=== PATIENT | male | born 1970 | race Caucasian/White ===

== ENCOUNTER → 2021-05-02 10:17 | Outpatient (CLI) | payer MEDICARE, OTHER, SELFPAY ==
[2021-05-02 10:28] LABS: Coronavirus 19, PCR Not Detected (NotDetected); Influenza A, PCR Not Detected (NotDetected); Influenza B, PCR Not Detected (NotDetected)
[2021-05-02 11:30] LABS: Basophils # 0.1 K/mm3 (0-0.2); Basophils % 1.1 % (0.1-2.0); Eosinophils # 0.1 K/mm3 (0.0-0.4); Eosinophils % 1.1 % (0.1-12.0); Hematocrit 46.6 % (42.0-52.0); Hemoglobin 14.7 g/dL (14.1-18.0); Lymphocytes # 1.5 K/mm3 (0.7-4.5); Mean Corpuscular HGB Conc 31.6 g/dL (31.8-35.4); Mean Corpuscular Hemoglobin 29.8 pg (27.0-31.2); Mean Corpuscular Volume 94.2 fl (80-94); Mean Platelet Volume 8.3 fl (7.4-10.4); Monocytes # 0.3 K/mm3 (0.1-1.0); Monocytes % 5.8 % (1.7-9.3); Neutrophils # 3.7 K/mm3 (1.8-7.8); Platelet Count 227 K/mm3 (142-424); Red Blood Count 4.94 M/mm3 (4.60-6.20); Red Cell Distribution Width 14.3 % (11.5-17.5); White Blood Count 5.6 K/mm3 (4.8-10.8)
[2021-05-02 11:35] LABS: Chloride 104 mmol/L (98-107); Potassium 4.2 mmoL/L (3.5-5.1); Sodium 138 mmol/L (136-145)
[2021-05-02 11:38] LABS: Alanine Aminotransferase 15 U/L (12-78); Albumin Level 4.2 g/dl (3.5-5.0); Albumin/Globulin Ratio 1.4 (1.1-1.8); Alkaline Phosphatase 52 U/L (38-126); Anion Gap 5.2 mEq/L (5-15); Aspartate Amino Transferase 34 U/L (17-59); Bilirubin,Total 0.3 mg/dl (0.2-1.3); Blood Urea Nitrogen 11 mg/dl (9-20); Carbon Dioxide 33 mmol/L (22.0-30.0); Estimated Glomerular Filt Rate 101 ml/min (>60); GFR (African American) 122 ML/MIN (>60); Total Protein,Serum 7.2 g/dl (6.3-8.2)
[2021-05-02 11:39] LABS: Calcium 9.5 mg/dl (8.4-10.2); Glucose 100 mg/dl (74-100)
[2021-05-02 11:56] LABS: Troponin I < 0.01 ng/ml (0.00-0.034)
[2021-05-02 12:09] LABS: Thyroid Stimulating Hormone 1.99 uIU/mL (0.465-4.68)
[2021-05-02 12:15] LABS: Free T4 (Free Thyroxine) 1.68 ng/dl (0.78-2.19)
[2021-05-02 15:08] LABS: Amphetamine/Metha Screen,Urine Negative ng/ml (<1000); Benzodiazepines Screen,Urine Negative ng/ml (<200)
[2021-05-02 15:09] LABS: Barbiturates Screen,Urine Negative ng/ml (<200); Cannabinoid Screen,Urine Negative ng/ml (<50)
[2021-05-02 15:10] LABS: Cocaine Screen,Urine Negative ng/ml (<300)
[2021-05-02 15:11] LABS: Methadone Screen,Urine Negative ng/ml (<300); Opiate Screen,Urine Negative ng/ml (<300)
[2021-05-02 15:12] LABS: Phencyclidine Screen,Urine Negative ng/ml (<25)
== END ==
PROVIDERS: PCP Emergency Medicine; Visit Provider Emergency Medicine
DX: R53.83 Other fatigue (principal); Z79.899 Other long term (current) drug therapy; Z20.822 Contact with and (suspected) exposure to COVID-19
CPT/HCPCS: 80053; 80305; 84439; 84443; 84484; 85025; C9803; U0003; U0005

== ENCOUNTER 2021-09-28 20:34 | Emergency (ER) | payer MEDICARE, OTHER, SELFPAY ==
[2021-09-28 20:29] VITALS: BP 109/71; PULSE 60; RESP 16; TEMP 36.9; O2SAT 96; BMI 26.2
--- NOTE | 2021-09-28 20:41 | CT_ITS ---
PROCEDURE INFORMATION: Exam: CT Head Without Contrast Exam date and time: 09/28/21 08:45 PM Age: 51 years old Clinical indication: Injury or trauma; Other: Punched himself in right eye; Blunt trauma (contusions or hematomas); Additional info: Head injury TECHNIQUE: Imaging protocol: Computed tomography of the head without contrast. Radiation optimization: All CT scans at this facility use at least one of these dose optimization techniques: automated exposure control; mA and/or kV adjustment per patient size (includes targeted exams where dose is matched to clinical indication); or iterative reconstruction. COMPARISON: No relevant prior studies available. FINDINGS: Brain: Normal. No hemorrhage. Unremarkable white matter. No mass effect. Cerebral ventricles: No ventriculomegaly. Paranasal sinuses: Visualized sinuses are unremarkable. No fluid levels. Mastoid air cells: Visualized mastoid air cells are well aerated. Bones/joints: Unremarkable. No acute fracture. Soft tissues: Unremarkable. IMPRESSION: No acute intracranial abnormality.
[2021-09-28 20:48] LABS: Adenovirus,PCR Not Detected (NotDetected); Bordetella Pertussis Not Detected (NotDetected); Chlamydophila Pneumoniae, PCR Not Detected (NotDetected); Coronavirus 19, PCR Not Detected (NotDetected); Coronavirus 229E Not Detected (NotDetected); Coronavirus NL63 Not Detected (NotDetected); Coronavirus OC43 Not Detected (NotDetected); Coronovirus HKU1,PCR Not Detected (NotDetected); Human Metapneumovirus Not Detected (NotDetected); Influenza A, PCR Not Detected (NotDetected); Influenza AH1, 2009 Not Detected (NotDetected); Influenza AH1, PCR Not Detected (NotDetected); Influenza AH3,PCR Not Detected (NotDetected); Influenza B, PCR Not Detected (NotDetected); Mycoplasma Pneumoniae, PCR Not Detected (NotDetected); Parainfluenza 1, PCR Not Detected (NotDetected); Parainfluenza 2, PCR Not Detected (NotDetected); Parainfluenza 3, PCR Not Detected (NotDetected); Parainfluenza 4, PCR Not Detected (NotDetected); Respiratory Syncytial Virus Not Detected (NotDetected); Rhinovirus/Enterovirus Not Detected (NotDetected)
--- NOTE | 2021-09-28 20:58 | HMH.EDPSYCH ---
ED Disposition Clinical Impression: Suicidal ideation Depression Qualifiers: Depression Type: major depressive disorder Major depression recurrence: unspecified whether recurrent Active/Remission status: currently active Major depression episode severity: unspecified Qualified Code(s): F32.9 - Major depressive disorder, single episode, unspecified Facial laceration Qualifiers: Encounter type: initial encounter Qualified Code(s): S01.81XA - Laceration without foreign body of other part of head, initial encounter Disposition: Xfer Psychiatric Hosp Condition on Discharge: Fair Instructions: Depression, DI for Laceration Repair -- Simple Additional Instructions: sutures out 8 days and will send to [facility] for eval Referrals: Scott Shankar MD [Emergency Provider] - - Critical Care Critical Care Time: No Attestation: On 09/28/21, the high probability of a clinically significant, sudden or life threatening deterioration of the following system(s) required my full and direct attention, intervention and personal management. The time I documented below is in addition to time spent performing reported procedures but includes the following listed in this critical care notation. Medical Decision Making - Medical Records Medical records reviewed: Yes: I reviewed the patient's medical records. - Godfrey Inquiry Pt receiving controlled substance: No Vital Signs: 09/28/21 20:29 Temperature 98.5 F Temperature Source Oral Pulse Rate [Left Radial] 60 Respiratory Rate 16 Blood Pressure [Right Arm] 109/71 L Blood Pressure Mean [Right Arm] 83 Blood Pressure Source [Right Arm] Automatic Cuff 02 Sat by Pulse Oximetry 96 Oxygen Delivery Method Room Air - Lab Data Lab results reviewed: Yes: I reviewed the patient's lab results. Lab Results 09/28/21 20:44: Chlamy pneumoniae PCR Not detected, Adenovirus (PCR) Not detected, B. pertussis DNA (PCR) Not detected, Coronavirus OC43 (PCR) Not detected, Coronavirus HKU1 (PCR) Not detected, Coronavirus 229E (PCR) Not detected, SARS-CoV-2 (PCR) Not detected, Coronavirus NL63 (PCR) Not detected, Human Metapneumovir PCR Not detected, Influenza A (H1) PCR Not detected, Influ A (H1N1/09) PCR Not detected, Influenza A (H3) PCR Not detected, Influenza Type A (PCR) Not detected, Influenza Type B (PCR) Not detected, M. pneumoniae (PCR) Not detected, Parainfluenza 1 (PCR) Not detected, Parainfluenza 2 (PCR) Not detected, Parainfluenza 3 (PCR) Not detected, Parainfluenza 4 (PCR) Not detected, RSV (PCR) Not detected, Entero/Rhino (PCR) Not detected 09/28/21 21:00: WBC 6.4, RBC 4.52 L, Hgb 13.0 L, Hct 43.4, MCV 96.1 H, MCH 28.7, MCHC 29.8 L, RDW 14.0, Plt Count 250, MPV 9.3, Neut % (Auto) 58.1, Lymph % (Auto) 31.9, Andrew % (Auto) 5.7, Eos % (Auto) 3.1, Baso % (Auto) 1.2, Neut # (Auto) 3.7, Lymph # (Auto) 2.1, Andrew # (Auto) 0.4, Eos # (Auto) 0.2, Baso # (Auto) 0.1 09/28/21 21:00: Sodium 139, Potassium 3.2 L, Chloride 105, Carbon Dioxide 26, Anion Gap 11.2, BUN 12, Creatinine 0.70, Estimated Creat Clear 156, Estimated GFR 118, Est GFR ( Amer) 143, Glucose 173 H, Calcium 8.7, Total Bilirubin < 0.1 L, AST 34, ALT 34, Alkaline Phosphatase 48, Total Protein 6.2 L, Albumin 3.6, Globulin 2.6, Albumin/Globulin Ratio 1.4, TSH 3.66, Thyroxine (T4) 8.6, Salicylates < 1.0 L, Acetaminophen < 10 L 09/28/21 21:05: Urine Color Yellow, Urine Appearance Clear, Urine pH 6.0, Ur Specific [place] >= 1.030, Urine Protein Negative, Urine Glucose (UA) Negative, Urine Ketones Trace, Urine Blood Negative, Urine Nitrate Negative, Urine Bilirubin 1+ A, Urine Urobilinogen 1.0, Ur Leukocyte Esterase Negative, Urine RBC Occasional, Urine WBC 5-10, Ur Squamous Epith Cells 3-5, Urine Bacteria Trace 09/28/21 21:05: Urine Opiates Screen Negative, Urine Methadone Screen Negative, Ur Barbituates Screen Negative, Ur Phencyclidine Scrn Negative, Ur Amphetamines Screen Negative, U Benzodiazepines Scrn Negative, Urine Cocaine Screen Negative, U
[2021-09-28 21:00] VITALS: BP 104/66; PULSE 53; O2SAT 96
[2021-09-28 21:09] LABS: Basophils # 0.1 K/mm3 (0-0.2); Basophils % 1.2 % (0.1-2.0); Eosinophils # 0.2 K/mm3 (0.0-0.4); Eosinophils % 3.1 % (0.1-12.0); Hematocrit 43.4 % (42.0-52.0); Lymphocytes # 2.1 K/mm3 (0.7-4.5); Lymphocytes % 31.9 % (10-50); Mean Corpuscular HGB Conc 29.8 g/dL (31.8-35.4); Mean Corpuscular Hemoglobin 28.7 pg (27.0-31.2); Mean Corpuscular Volume 96.1 fl (80-94); Mean Platelet Volume 9.3 fl (7.4-10.4); Monocytes # 0.4 K/mm3 (0.1-1.0); Monocytes % 5.7 % (1.7-9.3); Neutrophils # 3.7 K/mm3 (1.8-7.8); Neutrophils % 58.1 % (37.0-80.0); Platelet Count 250 K/mm3 (142-424); Red Blood Count 4.52 M/mm3 (4.60-6.20); White Blood Count 6.4 K/mm3 (4.8-10.8)
[2021-09-28 21:10] LABS: Microscopic, Urine URINE MICROSCOPIC (MICROSCOPIC)
[2021-09-28 21:17] LABS: Appearance,Urine CLEAR (Clear); Bilirubin,Urine 1+ (Negative); Blood, Urine Negative (Negative); Color,Urine YELLOW (Yellow); Glucose,Urine (UA) Negative (Negative); Ketones,Urine TRACE (Negative); Leukocyte Esterase,Urine Negative (Negative); Nitrate,Urine Negative (Negative); Protein,Urine Negative (Negative); Specific Gravity, Urine >= 1.030 (1.005-1.030)
[2021-09-28 21:20] LABS: Alanine Aminotransferase 34 U/L (12-78); Albumin Level 3.6 g/dl (3.5-5.0); Albumin/Globulin Ratio 1.4 (1.1-1.8); Alkaline Phosphatase 48 U/L (38-126); Anion Gap 11.2 mEq/L (5-15); Aspartate Amino Transferase 34 U/L (17-59); Blood Urea Nitrogen 12 mg/dl (9-20); Calcium 8.7 mg/dl (8.4-10.2); Carbon Dioxide 26 mmol/L (22.0-30.0); Chloride 105 mmol/L (98-107); Creatinine Clearance Estimated 156 mL/min (50-200); Estimated Glomerular Filt Rate 118 ml/min (>60); GFR (African American) 143 ML/MIN (>60); Globulin 2.6 g/dL (1.3-3.2); Glucose 173 mg/dl (74-100); Potassium 3.2 mmoL/L (3.5-5.1); Sodium 139 mmol/L (136-145); Total Protein,Serum 6.2 g/dl (6.3-8.2)
[2021-09-28 21:23] LABS: Acetaminophen < 10 ug/ml (10-30); Bilirubin,Total < 0.1 mg/dl (0.2-1.3); Salicylate < 1.0 mg/dL (2.0-20.0)
[2021-09-28 21:28] LABS: Barbiturates Screen,Urine Negative ng/ml (<200); Benzodiazepines Screen,Urine Negative ng/ml (<200)
[2021-09-28 21:29] LABS: Amphetamine/Metha Screen,Urine Negative ng/ml (<1000)
[2021-09-28 21:30] LABS: Bacteria,Urine Trace /lpf; Cannabinoid Screen,Urine Negative ng/ml (<50); Methadone Screen,Urine Negative ng/ml (<300); RBC,Urine Occasional #/hpf (0-3)
[2021-09-28 21:31] LABS: Cocaine Screen,Urine Negative ng/ml (<300); Opiate Screen,Urine Negative ng/ml (<300)
[2021-09-28 21:32] LABS: Phencyclidine Screen,Urine Negative ng/ml (<25)
[2021-09-28 21:37] LABS: T4 (Thyroxine) 8.6 ug/dl (5.53-11.0)
[2021-09-28 21:51] LABS: Thyroid Stimulating Hormone 3.66 uIU/mL (0.465-4.68)
--- NOTE | 2021-09-28 23:05 | ECG_ITS ---
APPROVED REPORT Exam: Resting ECG HR:44 bpm ECG Measurements Heart Rate 44 AXES MT 165 P 58 QRSd 115 QRS 93 QT 435 T 80 QTc 384 Conclusion SINUS BRADYCARDIA BORDERLINE RIGHT AXIS DEVIATION [QRS AXIS > 90] MODERATE INTRAVENTRICULAR CONDUCTION DELAY [110+ ms QRS DURATION] BORDERLINE ECG UNCONFIRMED REPORT Electronically signed by : Jason Dobbins MD 10/01/2021 17:50:21
[2021-09-28 23:10] VITALS: BP 92/67; PULSE 46; O2SAT 95
[2021-09-28 23:45] VITALS: BP 100/70; PULSE 58; RESP 18; TEMP 36.8; O2SAT 99
[2021-10-16 21:50] LABS: Free Valproic Acid (Depakote) 3.9
== END 2021-09-28 23:48 ==
PROVIDERS: Emergency Provider Emergency Medicine; PCP Internal Medicine Adolescent Medicine
DX: R45.851 Suicidal ideations (principal); F32.9 Major depressive disorder, single episode, unspecified; S01.81XA Laceration without foreign body of other part of head, initial encounter; X83.8XXA Intentional self-harm by other specified means, initial encounter; Z79.899 Other long term (current) drug therapy
CPT/HCPCS: 12051; 70450; 80053; 80165; 80305; 80329; 81001; 84436; 84443; 85025; 87581; 87632; 87798; 93005; 99284; C9803; U0003; U0005

== ENCOUNTER 2022-01-24 09:37 | Emergency (ER) | payer MEDICARE, OTHER, SELFPAY ==
[2022-01-24 09:39] VITALS: BP 106/70; PULSE 75; RESP 17; TEMP 36.8; O2SAT 100; BMI 26.1
--- NOTE | 2022-01-24 09:59 | HMH.EDGENADL ---
Discharge Plan Disposition Patient Disposition: Xfer Psychiatric Hosp Condition: Good Chief Complaint: Psychiatric Symptoms Prescriptions Prescriptions: No Action multivitamin 1 EACH tablet 1 each PO DAILY ibuprofen 200 MG capsule 200 mg PO Q6HP PRN (Reason: pain/fever) olanzapine 10 MG tablet 20 mg PO DAILY levothyroxine 100 MCG tablet 100 mcg PO DAILY famotidine 20 MG tablet 20 mg PO DAILY tamsulosin 0.4 MG capsule 0.4 mg PO HS mirtazapine 15 MG tablet 15 mg PO DAILY divalproex 250 MG tablet extended release 24 hr 750 mg PO DAILY oxcarbazepine [Trileptal] 600 mg Tablet 600 mg PO BID Clinical Impressions Clinical Impression: Depression, Suicidal ideation Discharge ED Provider: Devante Abad General Adult HPI General Chief complaint: Psychiatric Symptoms Stated complaint: Psych Time Seen by Provider: 01/24/22 09:50 Mode of Arrival: EMS Source of Information: Patient and EMS Limitations: No Limitations Description of Symptoms (Recalled from ER Triage Doc. by RN): When asked what brought pt to the ED today, he stated Because I'm retarted. I laugh a lot. Really loud sometimes . When pt was asked if he felt bad in any way today he stated, My head. It hurts a little . Pt also states that he is hungry and wishes to have something to eat. History of Present Illness HPI narrative: Patient is brought in by ambulance from [facility]. He states that he is sent here because I am crazy . When asked what he means by being crazy he says I am retarded . Reportedly he has been threatening harm at [facility]. When asked whether he wants to hurt himself or anybody else he states that he wants to kill himself, and would use a gun to shoot himself. He does not currently have access to a gun, but states I would get one . States that he is previously tried to kill himself 15 years ago by overdose. He denies any homicidal ideation or any thoughts of harming others. He says he has had admissions to multiple psychiatric facilities, including [facility]. He states that he wants to be transferred to a psychiatric facility where he can see a psychiatrist. He denies any current physical illness. Specifically denies fever, vomiting, diarrhea, abdominal pain, cough, URI symptoms, urinary symptoms, chest pain, shortness of breath. Related Data Home Medications Medication Instructions Recorded Confirmed divalproex 250 mg tablet,extended 750 mg PO DAILY seizures 09/28/21 01/24/22 release 24 hr famotidine 20 mg tablet 20 mg PO DAILY GERD 09/28/21 01/24/22 ibuprofen 200 mg capsule 200 mg PO Q6HP PRN pain/fever 09/28/21 01/24/22 levothyroxine 100 mcg tablet 100 mcg PO DAILY hypothyroidism 09/28/21 01/24/22 mirtazapine 15 mg tablet 15 mg PO DAILY antidepressant 09/28/21 01/24/22 multivitamin 1 each PO DAILY Supplement 09/28/21 01/24/22 olanzapine 10 mg tablet 20 mg PO DAILY mental disorder 09/28/21 01/24/22 tamsulosin 0.4 mg capsule 0.4 mg PO HS urinary retention 09/28/21 01/24/22 oxcarbazepine 600 mg tablet 600 mg PO BID 01/24/22 01/24/22 (Trileptal) schizophrenia/depression Allergies Allergy/AdvReac Type Severity Reaction Status Date / Time No Known Allergies Allergy Verified 09/28/21 23:34 PFSH PFS Social History Smoking Status: Current every day smoker ROS Obtained: Yes Systems reviewed as appropriate & no additional complaints except as documented Constitutional Constitutional: Denies fever(s), Denies headache(s) and Denies weakness ENT Ears, Nose, Mouth, and Throat: Denies headache(s), Denies nasal discharge and Denies sore throat Cardiovascular Cardiovascular: Denies chest pain Respiratory Respiratory: Denies shortness of breath and Denies cough Gastrointestinal Gastrointestingal: Denies abdominal pain, constipation, diarrhea or vomiting Genitourinary Male Genitourinary: Denies difficulty urinating and Denies flank pain Musculoskele
[2022-01-24 10:00] VITALS: BP 122/80; PULSE 68; RESP 20; O2SAT 100
--- NOTE | 2022-01-24 10:01 | XR_ITS ---
PROCEDURE INFORMATION: Exam: XR Chest Exam date and time: 01/24/2022 10:30 AM Age: 51 years old Clinical indication: Screening exam; Other screening; Additional info: Psych medical clearance TECHNIQUE: Imaging protocol: Radiologic exam of the chest. Views: 1 view. COMPARISON: No relevant prior studies available. FINDINGS: Lungs: Unremarkable. No consolidation. Pleural spaces: Unremarkable. No pleural effusion. No pneumothorax. Heart/Mediastinum: Unremarkable. No cardiomegaly. Bones/joints: Unremarkable. IMPRESSION: No acute findings.
--- NOTE | 2022-01-24 10:21 | PC.NURSE ---
LAB CALLED FOR BLOOD DRAW
--- NOTE | 2022-01-24 10:21 | PC.NURSE ---
RAD HERE FOR CXR
--- NOTE | 2022-01-24 10:29 | PC.NURSE ---
REG TRAY ORDERED
[2022-01-24 10:50] LABS: Basophils # 0.1 K/mm3 (0-0.2); Basophils % 1.3 % (0.1-2.0); Eosinophils # 0.1 K/mm3 (0.0-0.4); Eosinophils % 1.7 % (0.1-12.0); Hematocrit 42.1 % (42.0-52.0); Hemoglobin 13.8 g/dL (14.1-18.0); Lymphocytes # 1.3 K/mm3 (0.7-4.5); Lymphocytes % 29.4 % (10-50); Mean Corpuscular HGB Conc 32.8 g/dL (31.8-35.4); Mean Corpuscular Hemoglobin 29.8 pg (27.0-31.2); Mean Corpuscular Volume 90.8 fl (80-94); Mean Platelet Volume 7.8 fl (7.4-10.4); Monocytes # 0.3 K/mm3 (0.1-1.0); Monocytes % 6.4 % (1.7-9.3); Neutrophils # 2.6 K/mm3 (1.8-7.8); Platelet Count 312 K/mm3 (142-424); Red Blood Count 4.64 M/mm3 (4.60-6.20); Red Cell Distribution Width 14.5 % (11.5-17.5); White Blood Count 4.3 K/mm3 (4.8-10.8)
[2022-01-24 10:54] LABS: Microscopic, Urine URINE MICROSCOPIC (MICROSCOPIC)
[2022-01-24 10:57] LABS: Chloride 99 mmol/L (98-107); Potassium 3.6 mmoL/L (3.5-5.1); Sodium 142 mmol/L (136-145)
[2022-01-24 10:59] LABS: Alanine Aminotransferase 18 U/L (12-78); Blood Urea Nitrogen 5 mg/dl (9-20); Creatinine Clearance Estimated 181 mL/min (50-200); Estimated Glomerular Filt Rate 141 ml/min (>60); GFR (African American) 171 ML/MIN (>60)
[2022-01-24 11:00] LABS: Albumin Level 4.4 g/dl (3.5-5.0); Albumin/Globulin Ratio 1.5 (1.1-1.8); Alkaline Phosphatase 58 U/L (38-126); Anion Gap 12.6 mEq/L (5-15); Aspartate Amino Transferase 38 U/L (17-59); Bilirubin,Total 0.4 mg/dl (0.2-1.3); Calcium 9.5 mg/dl (8.4-10.2); Carbon Dioxide 34 mmol/L (22.0-30.0); Glucose 103 mg/dl (74-100); Total Protein,Serum 7.4 g/dl (6.3-8.2)
[2022-01-24 11:05] LABS: Acetaminophen < 10 ug/ml (10-30); Ethyl Alcohol < 10 mg/dl (0-10); Salicylate < 1.0 mg/dL (2.0-20.0)
[2022-01-24 11:06] LABS: Appearance,Urine CLEAR (Clear); Bilirubin,Urine Negative (Negative); Blood, Urine Negative (Negative); Color,Urine YELLOW (Yellow); Glucose,Urine (UA) Negative (Negative); Ketones,Urine 1+ (Negative); Leukocyte Esterase,Urine Negative (Negative); Nitrate,Urine Negative (Negative); Protein,Urine Negative (Negative); Specific Gravity, Urine 1.015 (1.005-1.030); Urobilinogen,Urine 0.2 EU/dl (0.2)
--- NOTE | 2022-01-24 11:10 | ECG_ITS ---
APPROVED REPORT Exam: Resting ECG HR:53 bpm ECG Measurements Heart Rate 53 AXES MN 142 P 57 QRSd 122 QRS 98 QT 427 T 85 QTc 409 Conclusion SINUS BRADYCARDIA BORDERLINE RIGHT AXIS DEVIATION Marked artifact and U waves noted BORDERLINE ECG UNCONFIRMED REPORT Electronically signed by : Jason Dobbins MD 01/24/2022 21:18:43
[2022-01-24 11:21] LABS: Squamous Epithelial Cell,Urine Occasional #/hpf (0-5); WBC,Urine Occasional #/hpf (0-3)
[2022-01-24 11:22] LABS: Barbiturates Screen,Urine Negative ng/ml (<200)
[2022-01-24 11:23] LABS: Amphetamine/Metha Screen,Urine Negative ng/ml (<1000); Benzodiazepines Screen,Urine Negative ng/ml (<200)
[2022-01-24 11:24] LABS: Cannabinoid Screen,Urine Negative ng/ml (<50); Methadone Screen,Urine Negative ng/ml (<300)
[2022-01-24 11:25] LABS: Cocaine Screen,Urine Negative ng/ml (<300)
[2022-01-24 11:26] LABS: Opiate Screen,Urine Negative ng/ml (<300)
[2022-01-24 11:27] LABS: Phencyclidine Screen,Urine Negative ng/ml (<25)
--- NOTE | 2022-01-24 11:55 | PC.NURSE ---
emailed involuntary hold papers to judge Friedman
--- NOTE | 2022-01-24 13:39 | PC.NURSE ---
numerous attempts to receive email from Judge Friedman, one more try at house supervisors email
--- NOTE | 2022-01-24 13:51 | PC.NURSE ---
pt requested i call his mother, pt is talking to her now
--- NOTE | 2022-01-24 13:56 | PC.NURSE ---
pt given another meal tray, he keeps asking when he is going and says he is not going back to [facility].
--- NOTE | 2022-01-24 14:38 | PC.NURSE ---
have spoken with IT department about difficulty receiving email from judge yadav, IT department has checked and has not found any blocked emails from judge yadav. It staff has given me an alternate email to use that he will check and route email to me if he receives it. Have contacted judge yadav back, explained to him about alternate email to try. He repeated email address back to me to verify it. At this time awaiting email.
--- NOTE | 2022-01-24 14:54 | PC.NURSE ---
[facility]
--- NOTE | 2022-01-24 15:30 | PC.NURSE ---
[place] is on Zoom with Pt
--- NOTE | 2022-01-24 15:55 | PC.NURSE ---
pt up walking around continuously, pt given cookies and a pepsi
--- NOTE | 2022-01-24 16:04 | PC.NURSE ---
pt talking and up walking around vitals not taken due to not disturb pt more right now
[2022-01-24 17:54] LABS: Coronavirus 19, PCR Not Detected (NotDetected); Influenza A, PCR Not Detected (NotDetected); Influenza B, PCR Not Detected (NotDetected)
[2022-01-24 18:05] VITALS: BP 128/72; PULSE 84; RESP 16; TEMP 36.8; O2SAT 97
== END 2022-01-24 18:05 ==
PROVIDERS: Emergency Provider Emergency Medicine
DX: R45.851 Suicidal ideations (principal); F32.A Depression, unspecified; S01.91XA Laceration without foreign body of unspecified part of head, initial encounter; X83.8XXA Intentional self-harm by other specified means, initial encounter; Z79.899 Other long term (current) drug therapy; K21.9 Gastro-esophageal reflux disease without esophagitis; E03.9 Hypothyroidism, unspecified
CPT/HCPCS: 36415; 71045; 80053; 80305; 80329; 81001; 85025; 93005; 99283; C9803; U0003; U0005

== ENCOUNTER 2022-03-26 12:08 | Emergency (ER) | payer MEDICARE, OTHER, SELFPAY ==
[2022-03-26] VITALS (14 sets, daily range): BP systolic 105–130; BP diastolic 62–88; PULSE 64–90; RESP 18–20; TEMP 36.6–36.8; O2SAT 96–100; BMI 23.7; BMI 25.2
--- NOTE | 2022-03-26 12:11 | ECG_ITS ---
APPROVED REPORT Exam: Resting ECG HR:73 bpm ECG Measurements Heart Rate 73 AXES GA 152 P 55 QRSd 108 QRS 100 QT 391 T 60 QTc 417 Conclusion SINUS RHYTHM BORDERLINE RIGHT AXIS DEVIATION [QRS AXIS > 90] BORDERLINE ECG UNCONFIRMED REPORT Electronically signed by : Jason Dobbins MD 03/26/2022 17:01:19
--- NOTE | 2022-03-26 12:15 | PC.NURSE ---
suicide precautions in place. 1:1 staff ember at the bedside. pt dressed in a gown and personal belongings placed in a bag
[2022-03-26 12:31] LABS: Basophils # 0.1 K/mm3 (0-0.2); Basophils % 1.2 % (0.1-2.0); Eosinophils # 0.1 K/mm3 (0.0-0.4); Eosinophils % 2.9 % (0.1-12.0); Hemoglobin 13.2 g/dL (14.1-18.0); Lymphocytes # 1.7 K/mm3 (0.7-4.5); Lymphocytes % 41.3 % (10-50); Mean Corpuscular Hemoglobin 31.5 pg (27.0-31.2); Mean Corpuscular Volume 95.4 fl (80-94); Mean Platelet Volume 8.2 fl (7.4-10.4); Monocytes # 0.3 K/mm3 (0.1-1.0); Monocytes % 7.7 % (1.7-9.3); Neutrophils % 46.9 % (37.0-80.0); Platelet Count 285 K/mm3 (142-424); Red Blood Count 4.19 M/mm3 (4.60-6.20); White Blood Count 4.2 K/mm3 (4.8-10.8)
--- NOTE | 2022-03-26 12:35 | HMH.EDGENADL ---
Discharge Plan Disposition Patient Disposition: Xfer Short-Term Hosp Prescriptions Prescriptions: No Action multivitamin 1 EACH tablet 1 each PO DAILY ibuprofen 200 MG capsule 200 mg PO Q6HP PRN (Reason: pain/fever) olanzapine 10 MG tablet 20 mg PO DAILY levothyroxine 100 MCG tablet 100 mcg PO DAILY famotidine 20 MG tablet 20 mg PO DAILY tamsulosin 0.4 MG capsule 0.4 mg PO HS mirtazapine 15 MG tablet 15 mg PO DAILY divalproex 250 MG tablet extended release 24 hr 750 mg PO DAILY oxcarbazepine [Trileptal] 600 mg Tablet 600 mg PO BID Referrals Follow up/Referrals: Scott Shankar MD [Primary Care Provider] - See instructions Clinical Impressions Clinical Impression: Suicidal ideation Discharge ED Provider: Armin Harper General Adult HPI General Chief complaint: Psychiatric Symptoms Stated complaint: SI Time Seen by Provider: 03/26/22 12:13 History of Present Illness HPI narrative: This is a 52-year-old male with history of paranoid schizophrenia and previous SI attempt via overdose who is presenting with suicidal ideation. Patient states I just cannot take it anymore, and is planning on jumping off a 3 story balcony. Denies any recent new stressors, other than halfway in which he lives. Denies medication changes, overdose, attempt currently, hallucinations, drug use, alcohol use, withdrawals, or any other concerning history. States that he has been compliant with his medication Related Data Home Medications Medication Instructions Recorded Confirmed divalproex 250 mg tablet,extended 750 mg PO DAILY seizures 09/28/21 01/24/22 release 24 hr famotidine 20 mg tablet 20 mg PO DAILY GERD 09/28/21 01/24/22 ibuprofen 200 mg capsule 200 mg PO Q6HP PRN pain/fever 09/28/21 01/24/22 levothyroxine 100 mcg tablet 100 mcg PO DAILY hypothyroidism 09/28/21 01/24/22 mirtazapine 15 mg tablet 15 mg PO DAILY antidepressant 09/28/21 01/24/22 multivitamin 1 each PO DAILY Supplement 09/28/21 01/24/22 olanzapine 10 mg tablet 20 mg PO DAILY mental disorder 09/28/21 01/24/22 tamsulosin 0.4 mg capsule 0.4 mg PO HS urinary retention 09/28/21 01/24/22 oxcarbazepine 600 mg tablet 600 mg PO BID 01/24/22 01/24/22 (Trileptal) schizophrenia/depression Allergies Allergy/AdvReac Type Severity Reaction Status Date / Time No Known Allergies Allergy Verified 09/28/21 23:34 [facility] Disclaimer: The information contained in this section may have been updated after the patient was seen, as this information can be updated by other users. Social History Smoking Status: Never smoker alcohol intake: current current occupational status: unemployed Travel in the last 8 weeks: None ROS Obtained: Yes All systems reviewed & no additional complaints except as documented Physical Exam General General appearance: alert and in no apparent distress Head Head exam: atraumatic, normocephalic and normal inspection Eye Eye exam: Present normal appearance, PERRL and EOMI ENT ENT exam: Present normal exam, normal oropharynx, mucous membranes moist, TM's normal bilaterally and normal external ear exam Neck Neck exam: Present normal inspection, full ROM and trachea midline; Absent meningismus or lymphadenopathy Chest Chest inspection: Present normal inspection and symmetric chest wall rise; Absent tenderness Respiratory Respiratory exam: Present normal lung sounds bilaterally; Absent respiratory distress Cardiovascular Cardiovascular exam: Present regular rate and normal rhythm; Absent JVD Abdominal Exam Abdominal exam: Present soft and normal bowel sounds; Absent distention, tenderness or guarding Extremities Exam Extremities exam: Present normal inspection, full ROM and normal capillary refill; Absent calf tenderness Back Exam Back exam: Present normal inspection; Absent tenderness Neurological Exam Neurological exam: Present alert and oriented X3 Psychiatric Ps
[2022-03-26 12:39] LABS: Chloride 104 mmol/L (98-107); Potassium 3.7 mmoL/L (3.5-5.1); Sodium 140 mmol/L (136-145)
[2022-03-26 12:42] LABS: Alanine Aminotransferase 13 U/L (12-78); Albumin/Globulin Ratio 1.5 (1.1-1.8); Alkaline Phosphatase 45 U/L (38-126); Anion Gap 7.7 mEq/L (5-15); Aspartate Amino Transferase 32 U/L (17-59); Bilirubin,Total 0.4 mg/dl (0.2-1.3); Blood Urea Nitrogen 16 mg/dl (9-20); Carbon Dioxide 32 mmol/L (22.0-30.0); Creatinine Clearance Estimated 143 mL/min (50-200); Estimated Glomerular Filt Rate 118 ml/min (>60); GFR (African American) 142 ML/MIN (>60); Globulin 2.7 g/dL (1.3-3.2); Total Protein,Serum 6.7 g/dl (6.3-8.2)
[2022-03-26 12:43] LABS: Calcium 8.7 mg/dl (8.4-10.2); Ethyl Alcohol < 10 mg/dl (0-10); Glucose 101 mg/dl (74-100)
--- NOTE | 2022-03-26 15:17 | CARE MANAGER ---
ER called as this patient is voicing suicidal ideations, patient told this case loader operator that he wants to jump off the fire escape. Patient resides at local personal halfway. Called and spoke with Chandra at [facility] and he states that we fill out the 710 and send the 710 and 711 to the police for transport order. 710 was filled out and faxed along with 711 to [phone], [facility] dispatch. They will fax back to the ER @ [phone] then they will complete virtual assessment.
--- NOTE | 2022-03-26 18:32 | PC.NURSE ---
FORMS FAXED TO [facility]
[2022-03-26 21:07] LABS: Acetaminophen < 10 ug/ml (10-30); Ethyl Alcohol < 10 mg/dl (0-10); Salicylate < 1.0 mg/dL (2.0-20.0)
[2022-03-26 21:27] LABS: Coronavirus 19, PCR Not Detected (NotDetected); Influenza A, PCR Not Detected (NotDetected); Influenza B, PCR Not Detected (NotDetected)
--- NOTE | 2022-03-26 22:13 | PC.NURSE ---
T Tucker here for notary of 710 form
--- NOTE | 2022-03-26 22:23 | PC.NURSE ---
called dispatch for pt transport to [facility]. They states Judge Altamirano is still completing 712/713 form.
--- NOTE | 2022-03-26 22:52 | PC.NURSE ---
Pt continues to ask when he will get to leave. Pt informed that we are working as quickly as possible, and will have him transferred as soon as we have transportation available.
--- NOTE | 2022-03-26 23:21 | PC.NURSE ---
Called dispatch to check status of transport. They states PD is on their way
--- NOTE | 2022-03-26 23:32 | PC.NURSE ---
Called report to [facility]. S/w Olga Mcrae RN
== END 2022-03-26 23:15 | disposition short-term general hospital (02) ==
PROVIDERS: Emergency Provider Emergency Medicine; PCP Emergency Medicine
DX: R45.851 Suicidal ideations (principal); F20.0 Paranoid schizophrenia; Z91.51 Personal history of suicidal behavior; Z20.822 Contact with and (suspected) exposure to COVID-19
CPT/HCPCS: 80053; 80329; 85025; 93005; 99285; C9803; U0003; U0005

== ENCOUNTER 2022-05-25 23:25 | Emergency (ER) | payer MEDICARE, OTHER, SELFPAY ==
--- NOTE | 2022-05-25 23:31 | ECG_ITS ---
APPROVED REPORT Exam: Resting ECG HR:70 bpm ECG Measurements Heart Rate 70 AXES GA 150 P 55 QRSd 105 QRS 87 QT 375 T 80 QTc 396 Conclusion SINUS RHYTHM WITH SINUS ARRHYTHMIA NORMAL ECG UNCONFIRMED REPORT Electronically signed by : Jason Dobbins MD 05/26/2022 20:20:30
[2022-05-25 23:35] VITALS: BP 119/91; PULSE 69; RESP 16; TEMP 36.8; O2SAT 100; BMI 23.7
[2022-05-25 23:36] LABS: Coronavirus 19, PCR Not Detected (NotDetected); Influenza A, PCR Not Detected (NotDetected); Influenza B, PCR Not Detected (NotDetected)
[2022-05-25 23:48] LABS: Microscopic, Urine URINE MICROSCOPIC (MICROSCOPIC)
[2022-05-25 23:49] LABS: Appearance,Urine CLEAR (Clear); Bilirubin,Urine Negative (Negative); Blood, Urine Negative (Negative); Color,Urine YELLOW (Yellow); Glucose,Urine (UA) Negative (Negative); Ketones,Urine Negative (Negative); Leukocyte Esterase,Urine Negative (Negative); Nitrate,Urine Negative (Negative); PH,Urine 6.5 (5.0-8.5); Protein,Urine Negative (Negative)
[2022-05-26 00:05] LABS: Squamous Epithelial Cell,Urine Occasional #/hpf (0-5)
--- NOTE | 2022-05-26 00:25 | HMH.EDMCLR ---
Discharge Plan Disposition Patient Disposition: Xfer Psychiatric Hosp Chief Complaint: Medical Clearance Prescriptions Prescriptions: No Action divalproex 250 mg tablet,delayed release (DR/EC) See Rx Instructions .ROUTE .COMPLEX Qty: 60 11RF Dose Instruction: GIVE 1 TABLET BY MOUTH TWICE DAILY Rx Instructions: GIVE 1 TABLET BY MOUTH TWICE DAILY multivitamin 1 EACH tablet 1 each PO DAILY ibuprofen 200 MG capsule 200 mg PO Q6HP PRN (Reason: pain/fever) olanzapine 10 MG tablet 20 mg PO DAILY levothyroxine 100 MCG tablet 100 mcg PO DAILY famotidine 20 MG tablet 20 mg PO DAILY tamsulosin 0.4 MG capsule 0.4 mg PO HS mirtazapine 15 MG tablet 15 mg PO DAILY oxcarbazepine [Trileptal] 600 mg Tablet 600 mg PO BID Referrals Follow up/Referrals: Scott Shankar MD [Primary Care Provider] - See instructions Clinical Impressions Clinical Impression: Depression, Suicidal ideation Discharge ED Provider: Raad (ED)Scott Medical Clearance HPI General Chief complaint: Medical Clearance Stated complaint: mental evaluation Time Seen by Provider: 05/26/22 00:25 Mode of Arrival: Ambulatory Source of Information: Patient, Law Enforcement and Medical Record Description of Symptoms (Recalled from ER Triage Doc. by RN): pt states, I want to kil myself. pt states he feels paranoid. pt also states he feels like people are out to get him at [facility]. he is threatending me with martial arts and stealing all my money. pt states he plans to jump off that bridge. pt states he has not attempted to hurt himself. Reportedly pt was threatening to kill other residents/employees at [facility], per law enforcement. History of Present Illness HPI Narrative: pt from [facility] and reports paranoid and feels like wants to harm self- - reports plan to jump off bridge - also reported wished to harm others - has hx of same MD complaint: medical clearance requested Onset (ago): hour(s) Reason for Medical Clearance: psychiatric condition Place: other ([facility] ) Alleged Intoxication: No Compliant with Home Medications: Yes Traumatic Symptoms: denies traumatic injury Associated Symptoms: denies other symptoms Home Medications Medication Instructions Recorded Confirmed famotidine 20 mg tablet 20 mg PO DAILY GERD 09/28/21 01/24/22 ibuprofen 200 mg capsule 200 mg PO Q6HP PRN pain/fever 09/28/21 01/24/22 levothyroxine 100 mcg tablet 100 mcg PO DAILY hypothyroidism 09/28/21 01/24/22 mirtazapine 15 mg tablet 15 mg PO DAILY antidepressant 09/28/21 01/24/22 multivitamin 1 each PO DAILY Supplement 09/28/21 01/24/22 olanzapine 10 mg tablet 20 mg PO DAILY mental disorder 09/28/21 01/24/22 tamsulosin 0.4 mg capsule 0.4 mg PO HS urinary retention 09/28/21 01/24/22 oxcarbazepine 600 mg tablet 600 mg PO BID 01/24/22 01/24/22 (Trileptal) schizophrenia/depression Previous Rx's Medication Instructions Recorded divalproex 250 mg tablet,delayed See Rx Instructions .Route 04/22/22 release .COMPLEX #60 ea Allergies Allergy/AdvReac Type Severity Reaction Status Date / Time No Known Allergies Allergy Verified 09/28/21 23:34 [facility] Disclaimer: The information contained in this section may have been updated after the patient was seen, as this information can be updated by other users. Social History (Updated 03/26/22 @ 15:45 by Armin Harper MD) Smoking Status: Current every day smoker alcohol intake: current current occupational status: unemployed Travel in the last 8 weeks: None ROS Obtained: Yes All systems reviewed & no additional complaints except as documented Physical Exam General General appearance: alert Head Head exam: normocephalic Eye Eye exam: Present PERRL and EOMI ENT ENT exam: Present mucous membranes moist Neck Neck exam: Present trachea midline Respiratory Respiratory exam: Absent respiratory distress Cardiovascul
[2022-05-26 01:10] LABS: Basophils # 0.1 K/mm3 (0-0.2); Basophils % 1.5 % (0.1-2.0); Eosinophils # 0.2 K/mm3 (0.0-0.4); Eosinophils % 3.2 % (0.1-12.0); Hematocrit 46.4 % (42.0-52.0); Hemoglobin 15.1 g/dL (14.1-18.0); Lymphocytes # 2.2 K/mm3 (0.7-4.5); Lymphocytes % 34.6 % (10-50); Mean Corpuscular HGB Conc 32.6 g/dL (31.8-35.4); Mean Corpuscular Hemoglobin 30.3 pg (27.0-31.2); Mean Corpuscular Volume 92.9 fl (80-94); Monocytes # 0.5 K/mm3 (0.1-1.0); Monocytes % 7.6 % (1.7-9.3); Neutrophils # 3.4 K/mm3 (1.8-7.8); Neutrophils % 53.1 % (37.0-80.0); Platelet Count 250 K/mm3 (142-424); Red Cell Distribution Width 13.4 % (11.5-17.5); White Blood Count 6.4 K/mm3 (4.8-10.8)
[2022-05-26 01:13] LABS: Chloride 104 mmol/L (98-107); Potassium 3.7 mmoL/L (3.5-5.1); Sodium 142 mmol/L (136-145)
[2022-05-26 01:16] LABS: Alanine Aminotransferase 23 U/L (12-78); Albumin Level 4.5 g/dl (3.5-5.0); Albumin/Globulin Ratio 1.5 (1.1-1.8); Alkaline Phosphatase 52 U/L (38-126); Anion Gap 10.7 mEq/L (5-15); Aspartate Amino Transferase 35 U/L (17-59); Bilirubin,Total 0.6 mg/dl (0.2-1.3); Blood Urea Nitrogen 9 mg/dl (9-20); Calcium 8.9 mg/dl (8.4-10.2); Carbon Dioxide 31 mmol/L (22.0-30.0); Creatinine Clearance Estimated 139 mL/min (50-200); Estimated Glomerular Filt Rate 118 ml/min (>60); GFR (African American) 142 ML/MIN (>60); Globulin 3.1 g/dL (1.3-3.2); Glucose 109 mg/dl (74-100); Total Protein,Serum 7.6 g/dl (6.3-8.2)
[2022-05-26 01:19] LABS: Ethyl Alcohol < 10 mg/dl (0-10)
[2022-05-26 01:20] LABS: Acetaminophen < 10 ug/ml (10-30); Salicylate < 1.0 mg/dL (2.0-20.0)
--- NOTE | 2022-05-26 01:26 | PC.NURSE ---
Pt provided with snacks and drink
--- NOTE | 2022-05-26 01:31 | PC.NURSE ---
spoke with natalia at [facility], states pt is going to be coming to [facility]. requested we fax pt medication list to [facility].
[2022-05-26 01:32] LABS: Opiate Screen,Urine Negative ng/ml (<300)
[2022-05-26 01:34] LABS: T4 (Thyroxine) 10.3 ug/dl (5.53-11.0)
[2022-05-26 01:38] LABS: Amphetamine/Metha Screen,Urine Negative ng/ml (<1000); Barbiturates Screen,Urine Negative ng/ml (<200)
[2022-05-26 01:39] LABS: Benzodiazepines Screen,Urine Negative ng/ml (<200); Cannabinoid Screen,Urine Negative ng/ml (<50)
[2022-05-26 01:40] LABS: Cocaine Screen,Urine Negative ng/ml (<300)
--- NOTE | 2022-05-26 01:40 | PC.NURSE ---
álvaro in lab states will be approx 5-10 minutes until results on uds, states has to rerun a couple things. notified JUAN J MCQUEEN
[2022-05-26 01:41] LABS: Methadone Screen,Urine Negative ng/ml (<300)
[2022-05-26 01:47] LABS: Thyroid Stimulating Hormone 2.44 uIU/mL (0.465-4.68)
[2022-05-26 01:55] VITALS: BP 00/00; PULSE 0; RESP 0; TEMP -17.7; TEMP 0
[2022-05-26 01:59] LABS: Phencyclidine Screen,Urine Negative ng/ml (<25)
== END 2022-05-26 01:56 ==
PROVIDERS: Emergency Provider Emergency Medicine; PCP Emergency Medicine
DX: F32.A Depression, unspecified (principal); R45.851 Suicidal ideations; F17.210 Nicotine dependence, cigarettes, uncomplicated; Z20.822 Contact with and (suspected) exposure to COVID-19
CPT/HCPCS: 80053; 80305; 80329; 81001; 84436; 84443; 85025; 93005; 93041; 99285; C9803; U0003; U0005

== ENCOUNTER 2022-10-08 17:44 | Emergency (ER) | payer MEDICARE, OTHER, SELFPAY ==
[2022-10-08 17:35] VITALS: BP 130/81; PULSE 82; RESP 18; TEMP 36.9; O2SAT 98; BMI 25.2
--- NOTE | 2022-10-08 17:39 | PC.NURSE ---
Issa Burks at bedside sitting 1:1 with patient.
[2022-10-08 18:02] VITALS: BP 136/78; PULSE 82; RESP 14; O2SAT 98
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
--- NOTE | 2022-10-08 18:55 | PC.NURSE ---
Attempted to call [facility] for intake evaluation. #[phone]. Will call back.
--- NOTE | 2022-10-08 19:13 | PC.NURSE ---
Gave report to plant operator/shift supervisor
--- NOTE | 2022-10-08 19:22 | ECG_ITS ---
APPROVED REPORT Exam: Resting ECG HR:69 bpm ECG Measurements Heart Rate 69 AXES AZ 149 P 58 QRSd 115 QRS 95 QT 393 T 83 QTc 412 Conclusion SINUS RHYTHM BORDERLINE RIGHT AXIS DEVIATION [QRS AXIS > 90] MODERATE INTRAVENTRICULAR CONDUCTION DELAY [110+ ms QRS DURATION] BORDERLINE ECG UNCONFIRMED REPORT Electronically signed by : Jason Dobbins MD 10/09/2022 07:32:11
[2022-10-08 19:38] LABS: Coronavirus 19, PCR Not Detected (NotDetected); Influenza A, PCR Not Detected (NotDetected); Influenza B, PCR Not Detected (NotDetected)
--- NOTE | 2022-10-08 19:39 | PC.NURSE ---
patient resting, vitals not obtained at this time
[2022-10-08 19:45] LABS: Chloride 103 mmol/L (98-107); Sodium 141 mmol/L (136-145)
[2022-10-08 19:47] LABS: Basophils % 0.7 % (0.1-2.0); Eosinophils # 0.3 K/mm3 (0.0-0.4); Hematocrit 39.7 % (42.0-52.0); Hemoglobin 12.5 g/dL (14.1-18.0); Lymphocytes # 1.6 K/mm3 (0.7-4.5); Lymphocytes % 34.9 % (10-50); Mean Corpuscular HGB Conc 31.4 g/dL (31.8-35.4); Mean Corpuscular Hemoglobin 29.1 pg (27.0-31.2); Mean Corpuscular Volume 92.8 fl (80-94); Mean Platelet Volume 7.9 fl (7.4-10.4); Monocytes # 0.4 K/mm3 (0.1-1.0); Monocytes % 9.2 % (1.7-9.3); Neutrophils # 2.2 K/mm3 (1.8-7.8); Neutrophils % 48.1 % (37.0-80.0); Platelet Count 225 K/mm3 (142-424); Red Blood Count 4.28 M/mm3 (4.60-6.20); Red Cell Distribution Width 13.2 % (11.5-17.5); White Blood Count 4.5 K/mm3 (4.8-10.8)
[2022-10-08 19:48] LABS: Alanine Aminotransferase 29 U/L (12-78); Albumin Level 3.7 g/dl (3.5-5.0); Albumin/Globulin Ratio 1.4 (1.1-1.8); Alkaline Phosphatase 45 U/L (38-126); Anion Gap 14.6 mEq/L (5-15); Aspartate Amino Transferase 46 U/L (17-59); Bilirubin,Total 0.3 mg/dl (0.2-1.3); Blood Urea Nitrogen 8 mg/dl (9-20); Carbon Dioxide 27 mmol/L (22.0-30.0); Creatinine Clearance Estimated 109 mL/min (50-200); Estimated Glomerular Filt Rate 88 ml/min (>60); GFR (African American) 106 ML/MIN (>60); Globulin 2.7 g/dL (1.3-3.2); Potassium 3.6 mmoL/L (3.5-5.1); Total Protein,Serum 6.4 g/dl (6.3-8.2)
[2022-10-08 19:49] LABS: Calcium 8.7 mg/dl (8.4-10.2); Glucose 123 mg/dl (74-100)
--- NOTE | 2022-10-08 19:53 | PC.NURSE ---
patient given [place]
[2022-10-08 19:56] LABS: Barbiturates Screen,Urine Negative ng/ml (<200)
[2022-10-08 19:57] LABS: Benzodiazepines Screen,Urine Negative ng/ml (<200)
[2022-10-08 19:58] LABS: Amphetamine/Metha Screen,Urine Negative ng/ml (<1000); Cannabinoid Screen,Urine Negative ng/ml (<50)
[2022-10-08 19:59] LABS: Cocaine Screen,Urine Negative ng/ml (<300)
[2022-10-08 20:00] LABS: Methadone Screen,Urine Negative ng/ml (<300); Opiate Screen,Urine Negative ng/ml (<300)
[2022-10-08 20:01] LABS: Phencyclidine Screen,Urine Negative ng/ml (<25)
--- NOTE | 2022-10-08 20:16 | PC.NURSE ---
Dr. Franco at bedside
[2022-10-08 20:22] LABS: Ethyl Alcohol < 10 mg/dl (0-10)
--- NOTE | 2022-10-08 20:29 | PC.NURSE ---
patient is saying he I just want to get a ride to [facility] and be dropped off and I can survive in the [place] , patient is currently laying in bed with eyes closed and continues to talk about places he can go if we can get him a ride. I have explained that is not an option and not something we can do.
--- NOTE | 2022-10-08 20:40 | PC.NURSE ---
AT BEDSIDE ROUNDING ON PT. PT STATES HE DOES NOT WANT TO RETURN TO [facility] AND HE DOES NOT FEEL SAFE THERE. PT STATES HE IS WILLING TO SPEAK WITH THE [facility] IN [place] FOR POSSIBLE TRANSFER.
[2022-10-08 20:48] VITALS: BP 116/77; PULSE 62; O2SAT 97
[2022-10-08 21:00] VITALS: BP 121/69; PULSE 60; O2SAT 97
--- NOTE | 2022-10-08 21:00 | PC.NURSE ---
RENÉ SPOKE WITH THE [facility] IN [place] TO START THE PROCESS FOR POSSIBLE TRANSFER. FAXING THE [facility] A PACKET.
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
--- NOTE | 2022-10-08 22:33 | PC.NURSE ---
PT CONTINUES TO SLEEP WITH NO NEW COMPLAINTS
--- NOTE | 2022-10-08 22:39 | PC.NURSE ---
spoke with german @ [facility] for [facility]. faxed information [phone]
--- NOTE | 2022-10-08 22:59 | PC.NURSE ---
Faxed information to [facility] at this time.
--- NOTE | 2022-10-08 23:52 | PC.NURSE ---
[facility] has no available beds; will work up for eval in am if patient is still in the ED .
--- NOTE | 2022-10-09 01:15 | PC.NURSE ---
Patient remains LOS to nursing station. Denies SI/HI. EMV 15.
--- NOTE | 2022-10-09 02:52 | PC.NURSE ---
RAMIRE[facility] MUNGUIA SPEAKING WITH JUDGE MARTINEZ.
--- NOTE | 2022-10-09 02:56 | PC.NURSE ---
RENÉ IS PLACING A CALL TO [facility] IN ORDER TO GET PT EVALUATED.
--- NOTE | 2022-10-09 03:15 | PC.NURSE ---
Patient up eating food at this time. Out to nursing station to determine what the POC was. Advised we are waiting for the unix administrator.Ambulatory, up to bathroom at this time. Voided approximately 350 ml of yellow urine. No complaints offered.
--- NOTE | 2022-10-09 04:05 | PC.NURSE ---
Patient remains LOS to nursing station. Continues to deny HI/SI issues. No auditory or visual hallucinations noted. Watching tv at this moment.
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
--- NOTE | 2022-10-09 05:15 | PC.NURSE ---
Patient remains in LOS observation. Patient continues to deny SI/HI. GCS 15. No acute distress observed. Assisted to ambulated to BR and back to room without incident.
--- NOTE | 2022-10-09 07:06 | PC.NURSE ---
RN @ BS updating pt
--- NOTE | 2022-10-09 07:32 | PC.NURSE ---
spoke with [facility] [employer] help line who states as soon as they process software specialist paperwork they will return call with zoom ID and password.
--- NOTE | 2022-10-09 08:01 | PC.NURSE ---
Patient sitting in chair next to chair. No complaints at this time.
--- NOTE | 2022-10-09 08:02 | PC.NURSE ---
debbie morillo verified they have received municipal court judge paperwork and will be in touch soon.
--- NOTE | 2022-10-09 08:12 | PC.NURSE ---
Patient's mother has been called and updated on plan of care.
[2022-10-09 08:40] VITALS: BP 140/82; PULSE 62; RESP 16; O2SAT 100
--- NOTE | 2022-10-09 08:40 | PC.NURSE ---
tech obtained updated new set of vitals at this time
--- NOTE | 2022-10-09 08:50 | PC.NURSE ---
[facility] evaluating patient via IPAD
--- NOTE | 2022-10-09 08:52 | PC.NURSE ---
Sabiha from [facility] called for evaluation of patient
--- NOTE | 2022-10-09 10:03 | PC.NURSE ---
pt to restroom unassisted
--- NOTE | 2022-10-09 10:07 | PC.NURSE ---
[facility] Critical evaluation team stated patient is not actively psychotic, suicidal, or homicidal and does not meet 202 A criteria fr admission to [facility] against his will. He engaged in safety plan as best he could and he will return to [facility] [place]
--- NOTE | 2022-10-09 10:13 | PC.NURSE ---
June from [facility] has been contact about a ride needed back to facility as well as reviewed over safety plan for patient. Also informed her that patient has received his Depakote 500mg and Risperdal 1mg but will still need to receive the rest of his morning meds.
--- NOTE | 2022-10-09 10:23 | PC.NURSE ---
June from [facility] stated they did not have a diver for patient per Director. Bobbi Aldrich has been called per June at [facility].
[2022-10-09 10:44] VITALS: BP 117/70; PULSE 50; RESP 18; O2SAT 97
--- NOTE | 2022-10-09 11:23 | PC.NURSE ---
gave pt a pop
[2022-10-09 11:54] VITALS: BP 117/70; PULSE 62; RESP 16; TEMP 36.9; O2SAT 100
== END 2022-10-09 11:57 | disposition still patient (30) ==
PROVIDERS: Emergency Medicine; Emergency Provider Emergency Medicine; PCP Family Medicine
DX: R45.851 Suicidal ideations (principal); S01.111A Laceration without foreign body of right eyelid and periocular area, initial encounter; S05.12XA Contusion of eyeball and orbital tissues, left eye, initial encounter; F17.200 Nicotine dependence, unspecified, uncomplicated; X79.XXXA Intentional self-harm by blunt object, initial encounter; Y09 Assault by unspecified means; Z23 Encounter for immunization
CPT/HCPCS: 12013; 80053; 80305; 85025; 87636; 90715; 93005; 96372; 99284; 99285

== ENCOUNTER 2023-12-04 13:50 | Emergency (ER) | payer MEDICARE, OTHER, SELFPAY ==
[2023-12-04 13:45] VITALS: BP 122/80; PULSE 56; RESP 18; TEMP 36.9; O2SAT 96; BMI 25.0
--- NOTE | 2023-12-04 13:49 | PC.NURSE ---
pt reports SI without a specific plan to me as well as EMS. I notified MD and warehouse order selector. 1:1 @ bedside. suicide precautions in place.
--- NOTE | 2023-12-04 13:57 | ECG_ITS ---
APPROVED REPORT Exam: Resting ECG HR:53 bpm ECG Measurements Heart Rate 53 AXES OH 150 P 58 QRSd 112 QRS 86 QT 401 T 74 QTc 383 Conclusion Sinus bradycardia Electronically signed by : SYLVIE TYSON, 12/04/2023 20:11:47
[2023-12-04 14:17] LABS: Eosinophils # 0.1 K/mm3 (0.0-0.4); Eosinophils % 1.8 % (0.1-12.0); Hematocrit 50.2 % (42.0-52.0); Hemoglobin 15.3 g/dL (14.1-18.0); Lymphocytes # 1.6 K/mm3 (0.7-4.5); Lymphocytes % 36.2 % (10-50); Mean Corpuscular HGB Conc 30.4 g/dL (31.8-35.4); Mean Corpuscular Hemoglobin 30.5 pg (27.0-31.2); Mean Corpuscular Volume 100.3 fl (80-94); Monocytes # 0.3 K/mm3 (0.1-1.0); Monocytes % 7.6 % (1.7-9.3); Neutrophils # 2.3 K/mm3 (1.8-7.8); Neutrophils % 53.4 % (37.0-80.0); Platelet Count 231 K/mm3 (142-424); Red Blood Count 5.01 M/mm3 (4.60-6.20); White Blood Count 4.3 K/mm3 (4.8-10.8)
[2023-12-04 14:21] LABS: Albumin Level 4.1 g/dl (3.5-5.0); Chloride 103 mmol/L (98-107)
[2023-12-04 14:22] LABS: Potassium 4.2 mmoL/L (3.5-5.1); Sodium 139 mmol/L (136-145)
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
[2023-12-04 14:24] LABS: Alanine Aminotransferase 24 U/L (12-78); Aspartate Amino Transferase 31 U/L (17-59); Blood Urea Nitrogen 14 mg/dl (9-20); Creatinine Clearance Estimated 124 mL/min (50-200); Estimated Glomerular Filt Rate 100 ml/min (>60); GFR (African American) 121 ML/MIN (>60)
[2023-12-04 14:25] LABS: Albumin/Globulin Ratio 1.4 (1.1-1.8); Alkaline Phosphatase 40 U/L (38-126); Anion Gap 7.2 mEq/L (5-15); Bilirubin,Total 0.7 mg/dl (0.2-1.3); Carbon Dioxide 33 mmol/L (22.0-30.0); Globulin 2.9 g/dL (1.3-3.2); Glucose 119 mg/dl (74-100)
[2023-12-04 14:29] LABS: Ethyl Alcohol < 10 mg/dl (0-10)
[2023-12-04 14:30] LABS: Acetaminophen < 10 ug/ml (10-30); Salicylate < 1.0 mg/dL (2.0-20.0)
[2023-12-04 14:55] LABS: Thyroid Stimulating Hormone 3.57 uIU/mL (0.465-4.68)
[2023-12-04] MEDS: IBUPROFEN 400 MG TABLET 800 MG PO (15:14)
[2023-12-04] MEDS: ACETAMINOPHEN 500MG TAB 1000 MG PO (15:14)
[2023-12-04 15:22] LABS: Coronavirus 19, PCR Not Detected (NotDetected); Influenza A, PCR Not Detected (NotDetected); Influenza B, PCR Not Detected (NotDetected)
[2023-12-04 15:38] LABS: Amphetamine/Metha Screen,Urine Negative ng/ml (<1000)
[2023-12-04 15:39] LABS: Barbiturates Screen,Urine Negative ng/ml (<200)
[2023-12-04 15:40] LABS: Benzodiazepines Screen,Urine Negative ng/ml (<200); Cannabinoid Screen,Urine Negative ng/ml (<50)
[2023-12-04 15:41] LABS: Cocaine Screen,Urine Negative ng/ml (<300)
[2023-12-04 15:42] LABS: Methadone Screen,Urine Negative ng/ml (<300); Opiate Screen,Urine Negative ng/ml (<300)
[2023-12-04 15:43] LABS: Phencyclidine Screen,Urine Negative ng/ml (<25)
--- NOTE | 2023-12-04 17:01 | PC.NURSE ---
spoke with [facility] and faxed over everything
--- NOTE | 2023-12-04 17:28 | PC.NURSE ---
LAB NOTIFIED OF [facility] ORDER
[2023-12-04 17:30] LABS: Microscopic, Urine URINE MICROSCOPIC (MICROSCOPIC)
[2023-12-04 17:31] LABS: Appearance,Urine CLEAR (Clear); Bilirubin,Urine Negative (Negative); Blood, Urine Negative (Negative); Color,Urine YELLOW (Yellow); Glucose,Urine (UA) Negative (Negative); Ketones,Urine Negative (Negative); Leukocyte Esterase,Urine Negative (Negative); Nitrate,Urine Negative (Negative); Protein,Urine Negative (Negative); Specific Gravity, Urine 1.015 (1.005-1.030); Urobilinogen,Urine 0.2 EU/dl (0.2)
[2023-12-04 17:37] LABS: RBC,Urine Occasional #/hpf (0-3)
[2023-12-04 17:38] LABS: Bacteria,Urine Trace /lpf
--- NOTE | 2023-12-04 18:22 | PC.NURSE ---
[facility] called back to get more info on patient, gave them face sheet, resulted [facility] as well as [facility] phone number and state [facility] name an number which is Citlaly Garcia [phone]. called registration an had them put this info in chart as well
[2023-12-04 18:30] VITALS: BP 109/71; PULSE 47; O2SAT 99
--- NOTE | 2023-12-04 18:46 | PC.NURSE ---
pt on the phone with [facility] currently
--- NOTE | 2023-12-04 18:51 | PC.NURSE ---
per intake at [facility] after talking to pateint he is denying any suicide ideation and wants to return to [facility] facility, LOGAN WEISS at bedside now for re eval
--- NOTE | 2023-12-04 19:01 | PC.NURSE ---
called [facility] and they are on the way to come get patient
--- NOTE | 2023-12-04 20:02 | PC.NURSE ---
called [facility] again for ride back to facility and then they said they will [facility] to come get him
[2023-12-04 20:43] VITALS: BP 111/72; PULSE 62; RESP 18; TEMP 36.9; O2SAT 95
== END 2023-12-04 20:45 | disposition home or self-care (01) ==
PROVIDERS: Emergency Medicine; Physician Assistant; Emergency Provider Emergency Medicine; PCP Nurse Practitioner Acute Care
DX: R45.851 Suicidal ideations (principal)
CPT/HCPCS: 80053; 80307; 80320; 80329; 81001; 84443; 85025; 87636; 93005; 99283; G0480

== ENCOUNTER 2024-02-01 22:24 | Emergency (ER) | payer MEDICARE, OTHER, SELFPAY ==
[2024-02-01 22:25] VITALS: BP 123/52; PULSE 59; RESP 18; TEMP 36.6; O2SAT 98; BMI 25.0
--- NOTE | 2024-02-01 22:33 | HMH.EDGENADL ---
Discharge Plan Disposition Patient Disposition: Home, Self-Care Condition: Fair Prescriptions Prescriptions: No Action lorazepam [Ativan] 0.5 mg tablet 0.5 mg PO TID PRN (Reason: anxiety) Qty: 90 0RF divalproex 250 mg tablet,delayed release (DR/EC) See Rx Instructions .ROUTE .COMPLEX Rx Instructions: GIVE 2 TABLETS (500MG) BY MOUTH TWICE DAILY levothyroxine 100 mcg tablet See Rx Instructions .ROUTE .COMPLEX Rx Instructions: GIVE 1 TABLET BY MOUTH EVERY MORNING famotidine 20 mg tablet See Rx Instructions .ROUTE .COMPLEX Rx Instructions: GIVE 1 TABLET BY MOUTH ONCE DAILY tamsulosin 0.4 mg capsule See Rx Instructions .ROUTE .COMPLEX Rx Instructions: GIVE 1 CAPSULE BY MOUTH EVERY EVENING risperidone 1 mg tablet 1 mg PO BID Referrals Follow up/Referrals: Avel Kwok APRN [Primary Care Provider] - See instructions Activity Restrictions/Add. Instructions Additional Instructions/Restrictions: Please follow up with your primary care provider in 2-3 days. Please return to ED if your symptoms worsen, change in location, change in severity, new symptoms develop or if you become concerned for your health. Clinical Impressions Clinical Impression: Chronic schizophrenia Print Language Print Language: [place] Discharge ED Provider: Reinaldo Kelly Adult HPI General Chief complaint: Psychiatric Symptoms Stated complaint: psych Time Seen by Provider: 02/01/24 22:26 History of Present Illness HPI narrative: Patient is a 51-year-old male with history of schizophrenia and mood disturbance. He presents today from his facility for concern for hearing voices . He reports that this has been going on for several months now. He reports that he is medicated at his facility, but he is not sure what medications he takes. He has tried medications in the past that helped him, but he is not sure what those are. He endorses some cough and congestion, denies any vision changes numbness weakness tingling. Denies any suicidal ideation or homicidal ideation. To nursing staff, he reports that you know they do not treat me well at my facility, could I just get something to eat and drink? On my my reassessment, patient is reporting to me that he would just like a another soda, and is not interested in having treatment here for the voices. He is alert and oriented and GCS 15. He smokes 1 pack/day. Denies alcohol and drug use. Related Data Home Medications ?Medication ?Instructions ?Recorded ?Confirmed divalproex 250 mg tablet,delayed See Rx Instructions .Route 10/08/22 release .COMPLEX mood famotidine 20 mg tablet See Rx Instructions .Route 10/08/22 .COMPLEX stomach levothyroxine 100 mcg tablet See Rx Instructions .Route 10/08/22 .COMPLEX thyroid risperidone 1 mg tablet 1 mg PO BID mood 10/08/22 tamsulosin 0.4 mg capsule See Rx Instructions .Route 10/08/22 .COMPLEX Anxiety Previous Rx's ?Medication ?Instructions ?Recorded lorazepam 0.5 mg tablet (Ativan) 0.5 mg PO TID PRN anxiety #90 tabs 03/01/23 Allergies Allergy/AdvReac Type Severity Reaction Status Date / Time diphenhydramine Allergy Verified 10/08/22 17:46 [From Benadryl] [facility] Disclaimer: The information contained in this section may have been updated after the patient was seen, as this information can be updated by other users. Social History (Updated 03/26/22 @ 15:45 by Armin Harper MD) Smoking Status: Current every day smoker alcohol intake: current current occupational status: unemployed Travel in the last 8 weeks: None Other Medical History Have you received the Flu Vaccine for this season: Yes Have you received the Pneumonia Vaccine: Yes ROS Obtained: Yes All systems reviewed & no additional complaints except as documented Physical Exam General General appearance: alert and in no apparent distress Head Head exam: atraumatic and normocephalic Eye Eye exam: Present PERRL and EOMI ENT ENT exam: Present normal oropharynx Neck Neck exam: Present full ROM and trachea midline Chest Chest inspection: Present symmetric chest wall rise Respiratory Respiratory exam: Present normal lung sounds bilaterally; Absent stridor Cardiovascular Cardiovascular exam: Present regular rate and normal rhythm Abdominal Exam Abdominal exam: Present soft; Absent distention or tenderness Extremities Exam Extremities exam: Present full ROM Neurological Exam Neurological exam: Present alert, oriented X3, CN II-XII intact and normal gait Psychiatric Psychiatric exam: Absent normal affect (Flat affect) or normal mood (Having some audio hallucinations, no visual hallucinations) Skin Skin exam: Present warm and dry Medical Decision Making Medical Records Screening: Per USPSTF and CDC recommendations, given the prevalence of disease in our region, it is our hospital?s policy to screen for HIV and viral Hepatitis for all patients aged 18 and over and those with ongoing risk factors. [facility] Inquiry Pt receiving controlled substance: No Vital Signs: 02/01/24 22:25 02/01/24 23:18 Temperature 97.9 F 98.2 F Temperature Source Oral Pulse Rate 74 Pulse Rate [Left] 59 L Respiratory Rate 18 16 Blood Pressure 111/74 Blood Pressure [Right Arm] 123/52 L Blood Pressure Mean [Right Arm] 75 02 Sat by Pulse Oximetry 98 Oxygen Delivery Method Room Air Medical Decision Narrative: In summary, this 54-year-old male presents to the emergency department today with auditory hallucinations. On initial evaluation patient is afebrile, hemodynamically stable in no acute distress. On exam, he is grossly neurologically intact and ambulating with a steady gait. He is tolerating oral intake without difficulty in the emergency department. He does have a flat affect, he is denying any suicidal ideation or homicidal ideation. He reports that he has been hearing voices for months and there is no big changes as of recent, he just wants food and drink here. He is offered transfer to [facility] that [facility], but he declines this at this time. He is alert and oriented and GCS 15 and of sound mind to make his own decisions.. Differential diagnosis includes but is not limited to schizophrenia, alcohol tox condition, drug intoxication. Based on these concerns, I ordered. I reviewed prior records including similar presentations for suicidal ideations, discharged.. On reassessment patient requesting more soda and sandwiches, he is declining any treatment at this time and is at his baseline.. At this time it was felt that the patient was safe to be discharged home. The patient was in agreement with this plan. The patient was given strict return precautions prior to being discharged from the emergency department. Critical Care Critical Care Time Critical Care Time: No
[2024-02-01 23:18] VITALS: BP 111/74; PULSE 74; RESP 16; TEMP 36.8; O2SAT 98
--- NOTE | 2024-02-01 23:20 | PC.NURSE ---
Tried to call [facility] for a ride
--- NOTE | 2024-02-01 23:22 | PC.NURSE ---
Garrett [facility] will come get patient
== END 2024-02-01 23:35 | disposition home or self-care (01) ==
PROVIDERS: Emergency Provider Emergency Medicine; PCP Nurse Practitioner Acute Care
DX: F20.9 Schizophrenia, unspecified (principal)
CPT/HCPCS: 99282